=== PATIENT | male | born 1965 | race Caucasian/White ===

== ENCOUNTER 2024-06-17 01:59 | Emergency (ER) | payer BC, SELFPAY ==
[2024-06-17 02:02] VITALS: BP 157/85
--- NOTE | 2024-06-17 02:11 | ED.GENMED ---
History of Present Illness
<KARLENE Campos - Last Filed: 06/17/24 05:13>
General
Chief Complaint: Flank Pain
Source: patient
Time Seen by Provider: 06/17/24 02:27
History of Present Illness
History of Present Illness:
A visibly in pain 58-year-old male with a past medical history of nephrolithiasis in 2017 presents to the emergency department and for left-sided flank pain. Patient states that after eating dinner that contained garlic bread, he developed sudden
onset left-sided flank pain radiating to the left lower quadrant. Patient rates the pain 10/10. It is associated with nausea and nonbloody vomiting x 1. He states he has a past history of nephrolithiasis but cannot recall if it was similar to
tonight's pain. He denies chest pain, shortness of breath, diarrhea, fever, chills.
He does admit to having 1 beer with dinner tonight.
Review of Systems
<KARLENE Campos - Last Filed: 06/17/24 05:13>
Review of Systems
Allergies reviewed?: Yes
All Other Systems: ROS reviewed and negative except as documented in HPI and ROS
Phy Exam
<KARLENE Campos - Last Filed: 06/17/24 05:13>
General Physical Exam
General Presentation: severe distress
General age: appears stated age
General Skin: warm
General Habitus: normal
General Mental: alert
General Hydration: appears well hydrated
ENT Exam
ENT Exam: neck supple
Eye Exam
Eye Exam: conjunctiva normal
Cardiovascular Exam
Cardiovascular Exam: regular rate/rhythm, no gallop, no murmur and normal peripheral pulses
Pulmonary Exam
Pulmonary Exam: lungs clear, no respiratory distress and no cough
Gastrointestinal Exam
Gastrointestinal Exam: normal bowel sounds, soft, cva tenderness (Left-sided minimal tenderness to palpation) and distended
Auscultation of Abdomen: normal
Neurological Exam
Neurological Exam: alert and oriented x3
Musculoskeletal Exam
Musculoskeletal Exam: full ROM, neuro vasc intact and other (Flank pain)
Skin Exam
Skin Exam: normal color, warm/dry and no rash
Psychiatric Exam
Psychiatric Exam: other (In visible pain)
Course
<KARLENE Campos - Last Filed: 06/17/24 05:13>
Orders/Labs/Results
Orders:
Orders
06/17/24 02:22
CT Abd/pelvis Wo Iv Cont Urgent
Comment:
Reason For Exam: left flank pain
06/17/24 02:30
CBC/With Diff [Complete Blood Count/With Diff] Urgent
CMP [Comprehensive Metabolic Panel] Urgent
06/17/24 02:32
HYDROmorphone [Dilaudid] 0.5 mg IV NOW STA
Ketorolac [Toradol] 15 mg IV NOW STA
Ondansetron Injectable [Zofran] 4 mg IV NOW STA
06/17/24 03:43
Tamsulosin [Flomax] 0.4 mg PO NOW STA
06/17/24 03:49
Urinalysis Reflex To Culture Urgent
Date Specimen was Collected: 06/17/24
Time Specimen was Collected: 03:47
Abnormal Lab Results
06/17/24 06/17/24
02:30 03:49
WBC 11.6 H 10^3/uL
(4.8-10.8)
RBC 4.26 L 10^6/uL
(4.70-6.10)
Hct 36.4 L %
(39.0-52.0)
MCH 31.2 H pg
(27.0-31.0)
Abs Immat Gran (auto) 0.1 H 10^3/uL
(0-0.05)
Absolute Neuts (auto) 10.1 H 10^3/uL
(1.4-6.5)
Absolute Lymphs (auto) 0.9 L 10^3/uL
(1.2-3.4)
Neutrophils % 87.0 H %
(42.2-75.2)
Lymphocytes % 8.0 L %
(20.5-51.1)
Glucose 147 H mg/dl
(70-99)
Urine Ketones 3+ A
(Negative)
06/17/24 02:30
06/17/24 02:30
Vital Signs
Initial and Last Documented VS:
Initial Vital Signs
Temp Pulse Resp BP Pulse Ox
97.8 F 94 20 157/85 100
06/17/24 02:02 06/17/24 02:02 06/17/24 02:02 06/17/24 02:02 06/17/24 02:02
Last Documented Vital Signs
Temp Pulse Resp BP Pulse Ox
97.8 F 118 20 142/88 96
06/17/24 02:02 06/17/24 03:45 06/17/24 03:45 06/17/24 03:45 06/17/24 03:45
Edinsonlt;Timi Iniguez, DO - Last Filed: 06/17/24 03:47>
Orders/Labs/Results
Orders:
Orders
06/17/24 02:22
CT Abd/pelvis Wo Iv Cont Urgent
Comment:
Reason For Exam: left flank pain
06/17/24 02:30
CBC/With Diff [Complete Blood Count/With Diff] Urgent
CMP [Comprehensive Metabolic Panel] Urgent
06/17/24 02:32
HYDROmorphone [Dilaudid] 0.5 mg IV NOW STA
Ketorolac [Toradol] 15 mg IV NOW STA
Ondansetron Injectable [Zofran] 4 mg IV NOW STA
06/17/24 03:43
Tamsulosin [Flomax] 0.4 mg PO NOW STA
06/17/24 03:49
Urinalysis Reflex To Culture Urgent
Date Specimen was Collected: 06/17/24
Time Specimen was Collected: 03:47
Abnormal Lab Results
06/17/24 06/17/24
02:30 03:49
WBC 11.6 H 10^3/uL
(4.8-10.8)
RBC 4.26 L 10^6/uL
(4.70-6.10)
Hct 36.4 L %
(39.0-52.0)
MCH 31.2 H pg
(27.0-31.0)
Abs Immat Gran (auto) 0.1 H 10^3/uL
(0-0.05)
Absolute Neuts (auto) 10.1 H 10^3/uL
(1.4-6.5)
Absolute Lymphs (auto) 0.9 L 10^3/uL
(1.2-3.4)
Neutrophils % 87.0 H %
(42.2-75.2)
Lymphocytes % 8.0 L %
(20.5-51.1)
Glucose 147 H mg/dl
(70-99)
Urine Ketones 3+ A
(Negative)
06/17/24 02:30
06/17/24 02:30
Vital Signs
Initial and Last Documented VS:
Initial Vital Signs
Temp Pulse Resp BP Pulse Ox
97.8 F 94 20 157/85 100
06/17/24 02:02 06/17/24 02:02 06/17/24 02:02 06/17/24 02:02 06/17/24 02:02
Last Documented Vital Signs
Temp Pulse Resp BP Pulse Ox
97.8 F 118 20 142/88 96
06/17/24 02:02 06/17/24 03:45 06/17/24 03:45 06/17/24 03:45 06/17/24 03:45
<KARLENE Campos - Last Filed: 06/17/24 05:13>
MDM/Problems Addressed
Differential Diagnosis Includes:
Nephrolithiasis, pyelonephritis, diverticulitis, colonic abscess,
MDM/Problems Addressed:
CT scan showed a 2 mm stone on the left UVJ.
<KARLENE Campos - Last Filed: 06/17/24 05:13>
*Critical Care Note
Total Time (30-74mins, 75-104mins- exclusive of procedures): Not Applicable
<KARLENE Campos - Last Filed: 06/17/24 05:13>
Update Note
Update Note:
CT ABDOMEN/PELVIS WITHOUT CONTRAST
IMPRESSION:
1. 2 mm stone at the left UVJ resulting in mild left hydronephrosis
2. No bowel obstruction. Normal gallbladder.
Incidentals:
-Diverticulosis. Mild stool burden
- No hepatic or pancreatic mass.
- No abdominal aortic aneurysm.
- No acute osseous abnormality.
- No acute abnormality within the visualized lungs.
- No acute abnormality within the visualized soft tissues.
Case finalized on Jun 17 2024 3:21AM ET
06/17/2024 0407 AM: [facility]: Just spoke with patient and significant other and explained CT results. Patient appears well and pain has significantly improved. Answered all patient questions and concerns.
<Timi Iniguez DO - Last Filed: 06/17/24 03:47>
Update Note
Update Note:
CT ABDOMEN/PELVIS WITHOUT CONTRAST
IMPRESSION:
1. 2 mm stone at the left UVJ resulting in mild left hydronephrosis
2. No bowel obstruction. Normal gallbladder.
Incidentals:
-Diverticulosis. Mild stool burden
- No hepatic or pancreatic mass.
- No abdominal aortic aneurysm.
- No acute osseous abnormality.
- No acute abnormality within the visualized lungs.
- No acute abnormality within the visualized soft tissues.
Case finalized on Jun 17 2024 3:21AM ET
ED Attending Note
<KARLENE Campos - Last Filed: 06/17/24 05:13>
-
Portions of this chart may have been created with voice recognition software.� Occasional wrong word or��sound alike� substitutions may have occurred due to the inherent limitations of voice recognition software.
<Timi Iniguez DO - Last Filed: 06/17/24 03:47>
ED Attending Note
Patient seen and examined by attending physician: Yes
I performed the substantive portion of visit, reviewed & personally made and approve the management plan that is documented in note by myself or SULLY.: Yes
ED Attending Note:
Pleasant 58-year-old male presents emergency department with left-sided abdominal pain. Patient does have a history of kidney stones previous kidney stones. His last known kidney stone was 2016. Patient developed left-sided flank pain this
evening. It radiated to the left lower he did have nausea with 1 episode of vomiting. Denies fever or chills. Reports no chest pain or shortness of breath. Patient was seen in conjunction with the PA student. I have reviewed and agree with the
history and treatment plan presented. On my independent physical exam, patient is awake, alert, and oriented x3 moderate acute distress at time of exam.
Discharge Plan
Departure
Patient Disposition: Home (Routine Discharge)
Date of Disposition: 06/17/24
Time of Disposition: 05:08
Patient with high blood pressure during this ER visit?: Yes
Condition: Good
Discharge Problem:
Kidney stone on left side
Instructions: Kidney Stones (DC), Flank Pain (DC), How to Strain Your Urine, BLOOD PRESSURE, Narcotic Pain Medication
Prescriptions:
New
oxycodone-acetaminophen [Percocet] 5-325 mg Tablet
1 tab PO Q6HPRN PRN (Reason: pain) Qty: 10 0RF
tamsulosin [Flomax] 0.4 mg Capsule
0.4 mg PO DAILY Qty: 7 0RF
diclofenac sodium 75 mg tablet,delayed release (DR/EC)
75 mg PO BID Qty: 10 0RF
Referrals:
Eliel Heath Jr., MD [Active] - Call in 1-3 days for appt
Activity Restrictions/Additional Instructions:
Your prescriptions were sent electronically to the pharmacy that you specified.
It was a pleasure meeting you and taking part in your care. We hope for your continued healing and wellness.
Please read discharge instructions in their entirety. However, they are for general education and may not describe your exact diagnosis at discharge. Information on your ER visit and medical conditions were discussed with you along with appropriate
follow up information...
If indicated, please take your medications as instructed and indicated on discharge paperwork.
Please schedule a follow up appointment as directed. Call to schedule an appointment
Please return to the emergency department with ANY change in, persisting, or worsening of symptoms. If any of your symptoms do not improve, or persist, or become more severe within 6-12 hours, please return to the emergency department for further
care.
Please return to the emergency department if you develop a headache, neck pain/stiffness, fever greater than 100.4F, chest pain, shortness of breath, persistent nausea, vomiting, slurred speech, difficulty walking, numbness/tingling, weakness, signs
of infection or any other symptoms that are worrisome to you.
If you have any questions or concerns please do not hesitate to call the Hospital at or E-mail me directly at [email or web address]
Interventions
Interventions:
*Risk Screen - Suicide Last Done: 06/17/24 02:02
*General Assessment Last Done: 06/17/24 02:02
*Neglect/Abuse Screening Last Done: 06/17/24 02:02
ED- Fall Risk Assessment Last Done: 06/17/24 02:45
*ED COVID-19 Vaccine History Last Done: 06/17/24 02:02
YQ-Lmrjia-Mdoabfqgms Assessment Last Done: 06/17/24 02:45
ED-Male Genitourinary Assessment Last Done: 06/17/24 02:45
Discharge Date and Time
Print Language: ITALIAN
[2024-06-17 02:33] VITALS: BMI 23.1
[2024-06-17] MEDS: DILAUDID 0.5 MG IV (02:37)
[2024-06-17] MEDS: ZOFRAN 4 MG IV (02:38)
[2024-06-17] MEDS: TORADOL 15 MG IV (02:38)
[2024-06-17 02:40] LABS: % Basophils 0.4 % (0-2); % Eosinophils 0.2 % (0-6); % Immature Granulocytes 0.4 % (0-0.5); Absolute Basophils 0.1 10^3/uL (0-0.2); Absolute Immature Granulocytes 0.1 10^3/uL (0-0.05); Absolute Lymphocytes 0.9 10^3/uL (1.2-3.4); Absolute Monocytes 0.5 10^3/uL (0.1-0.6); Absolute Neutrophils 10.1 10^3/uL (1.4-6.5); Hematocrit 36.4 % (39.0-52.0); Hemoglobin 13.3 g/dL (13.0-18.0); Mean Corp Hgb Conc. 36.5 g/dL (33.0-37.0); Mean Corpuscular Hgb 31.2 pg (27.0-31.0); Mean Corpuscular Volume 85.4 fL (80.0-94.0); Mean Platelet Volume 9.3 fL (7.4-10.4); Nucleated Red Blood Cells % 0 % (-); Platelet Count 253 10^3/uL (130-400); Red Blood Cell Count 4.26 10^6/uL (4.70-6.10); Red Cell Dist. Width 11.9 % (11.5-14.5); White Blood Cell Count 11.6 10^3/uL (4.8-10.8)
[2024-06-17 03:03] LABS: ALT (SGPT) 26 U/L (0-50); AST (SGOT) 29 U/L (17-59); Albumin 4.6 g/dl (3.5-5.0); Alkaline Phosphatase 83 U/L (38-126); Blood Urea Nitrogen 20 mg/dl (9-20); Calcium 9.7 mg/dl (8.4-10.2); Carbon Dioxide 23 mmol/L (22-30); Chloride 99 mmol/L (98-107); Estimated Creatinine Clearance 77 ml/min; Glucose 147 mg/dl (70-99); Potassium 3.8 mmol/L (3.5-5.1); Sodium 136 mmol/L (135-145); Total Bilirubin 0.4 mg/dl (0.2-1.3); Total Protein 6.9 g/dl (6.3-8.2); eGFR > 60.00
[2024-06-17 03:45] VITALS: BP 142/88
[2024-06-17] MEDS: FLOMAX 0.4 MG PO (04:03)
[2024-06-17 04:53] LABS: Urine Albumin Negative (Neg - Trace); Urine Bilirubin Negative (Negative); Urine Character Clear (Clear); Urine Color Yellow; Urine Glucose Negative (Negative); Urine Ketone 3+ (Negative); Urine Leukocyte Negative (Negative); Urine Nitrite Negative (Negative); Urine Occult Blood Negative (Negative); Urine Urobilinogen Negative (Neg - 1+); Urine pH 6.5 (5.0-9.0)
[2024-06-17 05:12] VITALS: BP 139/90
== END 2024-06-17 05:21 | disposition home or self-care (01) ==
LOC: EMR 01:59
PROVIDERS: EMERGENCY PHYSICIAN Student in an Organized Health Care Education/Training Program; FAMILY PHYSICIAN Family Medicine
DX: N13.2 Hydronephrosis with renal and ureteral calculous obstruction (principal)
CPT/HCPCS: 96374; 96375; 99284; 74176; 80053; 81003; 85025

== ENCOUNTER 2025-02-24 14:30 | Emergency (ER) | payer BC, SELFPAY ==
[2025-02-24 14:35] VITALS: BP 150/96
[2025-02-24 14:55] LABS: Hematocrit 39.2 % (39.0-52.0); Hemoglobin 13.5 g/dL (13.0-18.0); Mean Corp Hgb Conc. 34.4 g/dL (33.0-37.0); Mean Corpuscular Volume 88.9 fL (80.0-94.0); Nucleated Red Blood Cells % 0 % (-); Platelet Count 249 10^3/uL (130-400); Red Cell Dist. Width 12.2 % (11.5-14.5)
[2025-02-24 15:17] LABS: ALT (SGPT) 18 U/L (0-50); AST (SGOT) 23 U/L (17-59); Albumin 5.0 g/dl (3.5-5.0); Alkaline Phosphatase 72 U/L (38-126); Blood Urea Nitrogen 10 mg/dl (9-20); Calcium 9.6 mg/dl (8.4-10.2); Carbon Dioxide 24 mmol/L (22-30); Chloride 103 mmol/L (98-107); Glucose 122 mg/dl (70-99); Potassium 4.1 mmol/L (3.5-5.1); Sodium 134 mmol/L (135-145); Total Protein 7.4 g/dl (6.3-8.2); eGFR > 60.00
[2025-02-24 15:27] LABS: Troponin I < 0.012 ng/ml
[2025-02-24 17:32] VITALS: BMI 22.6
[2025-02-24 17:34] VITALS: BP 147/85
--- NOTE | 2025-02-24 19:02 | ED.GENMED ---
History of Present Illness
General
Chief Complaint: Dizziness
Time Seen by Provider: 02/24/25 17:50
History of Present Illness
History of Present Illness:
59-year-old male without significant past medical history presenting to the emergency department for concern of numbness sensation to his face and his leg. Patient reports he intermittently gets a numbness sensation to the left cheek. When he woke
up this morning, felt a numbness sensation to the top of his left aguilar. Symptoms were not going away which prompted him to come to the hospital. Does note stroke history with his mother. He denies any focal weakness or sensory deficits to his
face presently, or his upper extremities. Denies any recent fall or trauma. Denies chest pain or difficulty breathing. Denies fever. Denies additional acute medical complaints
Phy Exam
Physical Exam
Physical Exam:
General: Well-appearing, no clinical signs of dehydration, nontoxic and in no acute distress
HEENT: protecting airway
Neck: appears supple
CV: Normal heart rate, regular rhythm
Resp: No accessory muscle use, no increased work of breathing, lungs clear to auscultation bilaterally
Abd: No distention
Extremities: No deformities, no swelling
Neuro: alert, no focal neurologic deficit
: deferred
Rectal: deferred
Psych: Normal affect
Skin: Intact
Scores
NIH Stroke Score
Level of Consciousness: 0 - Alert
LOC Questions: 0-Answers both correctly
LOC Commands: 0-Performs both correctly
Best Horizontal Gaze: 0-Normal
Visual Gil[place]: 0=Normal, no visual loss
Facial Palsy: 0=Normal, symmetrical
Motor - Right Arm: 0=No drift 10 seconds
Motor - Left Arm: 0=No drift 10 seconds
Motor - Right Le-No drift 5 seconds
Motor - Left Le-No drift 5 seconds
Limb Ataxia: 0-Absent
Sensation: 0-Normal
Best Language: 0-No aphasia
Dysarthria: 0-Normal
Extinction and Inattention: 0-No abnormality
NIH Total Score:: 0
Course
Orders/Labs/Results
Orders:
Orders
02/24/25 14:34
Electrocardiogram (*1) Urgent
Reason for Study: Chest Pain
EKG- Treatment ONCE
02/24/25 14:41
CT Head W/o Iv Contrast Urgent
Comment:
Reason For Exam: L facial & L leg numbness
02/24/25 14:48
Complete Blood Count/With Diff Urgent
Comprehensive Metabolic Panel Urgent
Troponin I Urgent
02/24/25 18:14
CT Head & Neck Angio W/wo IV Urgent
Comment:
Reason For Exam: L-facial numbness and LLE numbness
Abnormal Lab Results
02/24/25
14:48
RBC 4.41 L 10^6/uL
(4.70-6.10)
Absolute Lymphs (auto) 1.1 L 10^3/uL
(1.2-3.4)
Neutrophils % 77.4 H %
(42.2-75.2)
Lymphocytes % 16.0 L %
(20.5-51.1)
Sodium 134 L mmol/L
(135-145)
Creatinine 0.5 L mg/dL
(0.7-1.3)
Glucose 122 H mg/dl
(70-99)
02/24/25 14:48
02/24/25 14:48
Vital Signs
Initial and Last Documented VS:
Initial Vital Signs
Temp Pulse Resp BP Pulse Ox
98.1 F 102 20 150/96 99
02/24/25 14:35 02/24/25 14:35 02/24/25 14:35 02/24/25 14:35 02/24/25 14:35
Last Documented Vital Signs
Temp Pulse Resp BP Pulse Ox
98.5 F 97 18 147/85 99
02/24/25 17:34 02/24/25 17:34 02/24/25 17:34 02/24/25 17:34 02/24/25 17:34
MDM/Problems Addressed
MDM/Problems Addressed:
59-year-old male without significant past medical history presenting for paresthesias to the left side of the face and left lower extremity. Vital signs on arrival are significant for mild hypertension.
On exam patient is resting comfortably, no acute distress or discomfort. Denies any present numbness to his face. Notes a focal area of paresthesias to the left aguilar. Distribution of patient's symptoms, lower suspicion for stroke. NIH stroke
scale at this time is a 0. Patient initially evaluated through triage, had laboratory analysis and CT imaging of his brain. Labs unremarkable, EKG nonischemic. CT brain without acute intracranial abnormality. Patient does not family history of
stroke. He also notes intermittent numbness to the left side of the face at V2 distribution. Given this information, discussed obtaining a CTA of the head and neck for further evaluation to ensure no acute process.
19:00 - Patient would prefer not to get CT at this time. Feel reasonable given his symptoms and overall well appearance, for acute stroke. He would prefer to go home and follow-up with his doctor. Feel this is reasonable plan, advised outpatient
follow-up for potential MRI imaging if symptoms persist. Also encouraged daily aspirin. Strict return precautions were communicated to patient and at bedside who verbalized understanding
*Pulse Oximetry
SaO2: 99
Oxygen Mode of Delivery: Room air
Patient hypoxic: no
*EKG
Interpreted by ED Provider?: Yes
EKG Intrepretation Date: 02/24/25
EKG Intrepretation Time: 19:02
Interpretation: normal
Heart Rate: 102
Rate: tachycardiac
Rhythm: sinus
[place]: normal axis
Interval: normal interval
QRS Pattern: normal QRS
Ischemia: no ischemia
*Critical Care Note
Total Time (30-74mins, 75-104mins- exclusive of procedures): Not Applicable
ED Attending Note
-
Portions of this chart may have been created with voice recognition software.� Occasional wrong word or��sound alike� substitutions may have occurred due to the inherent limitations of voice recognition software.
Discharge Plan
Departure
Patient Disposition: Home (Routine Discharge)
Date of Disposition: 02/24/25
Time of Disposition: 19:03
Patient with high blood pressure during this ER visit?: No
Condition: Good
Discharge Problem:
Facial paresthesia
Instructions: Transient Ischemic Attack ED
Prescriptions:
No Action
oxycodone-acetaminophen [Percocet] 5-325 mg Tablet
1 tab PO Q6HPRN PRN (Reason: pain) Qty: 10 0RF
tamsulosin [Flomax] 0.4 mg Capsule
0.4 mg PO DAILY Qty: 7 0RF
diclofenac sodium 75 mg tablet,delayed release (DR/EC)
75 mg PO BID Qty: 10 0RF
Referrals:
Radha Hector DO [Family Provider, Internal Medicine]
Kris Chery MD [Active, Neurology]
Activity Restrictions/Additional Instructions:
You were seen in the emergency department for tingling sensation to your face and your leg
You were found to have reassuring laboratory analysis and CT imaging of your brain. We have low suspicion for stroke at this time. Please continue to follow with your doctor and follow-up with a neurologist
Please follow-up closely with your primary care physician.
Return to the emergency department for any worsening of your symptoms, or any development of chest pain, difficulty breathing, abdominal pain with persistent vomiting and inability to tolerate food or liquid by mouth (concern for dehydration),
weakness, headache or confusion, fever greater than 100.4, or any additional symptoms that are concerning to you.
Thank you for choosing [facility].
Interventions
Interventions:
*Risk Screen - Suicide Last Done: 02/24/25 14:35
*General Assessment Last Done: 02/24/25 14:35
*Neglect/Abuse Screening Last Done: 02/24/25 17:33
*ED- Fall Risk Assessment Last Done: 02/24/25 17:33
*ED COVID-19 Vaccine History Last Done: 02/24/25 17:33
ED- Neurological Assessment Last Done: 02/24/25 17:36
ED- Cardiac Assessment Last Done: 02/24/25 17:36
Discharge Date and Time
Print Language: SPANISH
== END 2025-02-24 19:10 | disposition home or self-care (01) ==
LOC: EMR 14:30
PROVIDERS: Emergency Medicine; EMERGENCY PHYSICIAN Student in an Organized Health Care Education/Training Program; FAMILY PHYSICIAN Internal Medicine
DX: R20.2 Paresthesia of skin (principal); R20.0 Anesthesia of skin; R42 Dizziness and giddiness; Z87.442 Personal history of urinary calculi
CPT/HCPCS: 99284; 70450; 80053; 84484; 85025; 93005